=== PATIENT | female | born 1975 | race African-American/Black ===

== ENCOUNTER 2022-01-27 08:08 | Inpatient (IN) | payer MEDICARE, MEDICAID ==
[2022-01-27] MEDS ORDERED: Ketorolac Tromethamine 30 MG/ML VIAL ONE ×2 (08:54→16:31)
[2022-01-27] MEDS ORDERED: Morphine 4 MG/ML VIAL ONE (09:08)
[2022-01-27 09:29] LABS: #Monocytes 0.4 10x3/uL (0.0-1.1); #Neutrophils 9.3 10x3/uL (1.5-8.4); %Basophils 0.1 % (0.0-2.0); %Lymphocytes 3.4 % (18.0-47.0); %Monocytes 3.7 % (0.0-10.0); %Neutrophils 91.5 % (40.0-75.0); Hemoglobin 10.4 g/dL (12.0-15.5); Mean Corpuscular HGB CONC 33.5 g/dL (32.0-36.0); Mean Corpuscular Hemoglobin 25.9 pg (27.0-33.0); Mean Corpuscular Volume 77.1 fl (81.6-98.3); Mean Platelet Volume 9.6 fl (7.4-10.4); Platelet Count 202 10x3/uL (150-450); RBC Distribution Width 16.6 % (11.5-14.5); Red Blood Cell (RBC) Count 4.02 10x6/uL (3.90-5.03); White Blood Cell (WBC) Count 10.2 10x3/uL (3.5-10.5)
[2022-01-27 09:29] LABS: SARS-CoV-2 NAA Rapid Test Not Detected (NotDetected)
[2022-01-27 09:42] LABS: BHCG - Serum Negative (NEGATIVE); Pregs Control Background? CLEAR/WHITE (CLR/WHITE); Pregs Control Bar Appear? YES (CONTROL BAR)
[2022-01-27 09:51] LABS: ALT (SGPT) Less than 6 U/L (8-55); AST (SGOT) 20 U/L (5-34); Albumin 3.7 g/dL (3.5-5.0); Alkaline Phosphatase 61 U/L (40-110); Anion Gap 13 mmol/L (10-20); BUN (Urea Nitrogen) 5 mg/dL (7.0-18.7); Bilirubin, Total 0.4 mg/dL (0.2-1.2); Calc. Creatinine Clearance 0 mL/min (70-130); Carbon Dioxide 23 mmol/L (22-29); Chloride 102 mmol/L (98-107); Estimated GFR 103; Globulin 3.9 g/dL (2.4-3.5); Glucose 132 mg/dL (70-105); Protein, Total 7.6 g/dL (6.0-8.3); Sodium 135 mmol/L (136-145)
[2022-01-27 09:56] LABS: Potassium 2.6 mmol/L (3.5-5.1)
[2022-01-27] MEDS ORDERED: Fluconazole In NaCl,Iso-Osm 400 MG in Premix Bag 1 BAG IVPB SCH (10:00)
[2022-01-27] MEDS ORDERED: Magnesium 2 GM/50 ML BAG (IN WATER) ONE (10:15)
[2022-01-27] MEDS ORDERED: Potassium Chloride 20 MEQ TAB ONE (10:15)
[2022-01-27] MEDS ORDERED: Ondansetron ODT 4 MG TAB PO PRN (15:06)
[2022-01-27] MEDS ORDERED: Electrolyte Replacement Protocol 1 EACH FS SCH (15:15)
[2022-01-27] MEDS ORDERED: D5 1/2 NS w/20 mEq KCL 0 ML ONE (16:05)
[2022-01-27 18:13] VITALS: BMI 18.8
[2022-01-27] MEDS: 1/2 NS w/KCL 20 mEq 1,000 ML IV SCH (18:35)
[2022-01-27 20:43] LABS: Anion Gap 10 mmol/L (10-20); BUN (Urea Nitrogen) 8 mg/dL (7.0-18.7); Calc. Creatinine Clearance 72 mL/min (70-130); Calcium 8.4 mg/dL (7.8-10.44); Carbon Dioxide 25 mmol/L (22-29); Chloride 106 mmol/L (98-107); Estimated GFR 107; Glucose 123 mg/dL (70-105); Potassium 2.7 mmol/L (3.5-5.1); Sodium 138 mmol/L (136-145)
[2022-01-27] MEDS: Ketorolac Tromethamine 30 MG/ML VIAL IVP PRN (22:45)
[2022-01-27] MEDS ORDERED: Potassium Chloride 20 MEQ TAB PO SCH (23:00)
[2022-01-28] MEDS: Potassium Chloride 20 MEQ in Premix Bag 1 BAG IVPB SCH ×2 (00:07→03:05)
[2022-01-28] MEDS: 1/2 NS w/KCL 20 mEq 1,000 ML IV SCH ×3 (03:05→20:50)
[2022-01-28] MEDS: Ketorolac Tromethamine 30 MG/ML VIAL IVP PRN ×2 (04:16→09:28)
[2022-01-28] MEDS: Fluconazole In NaCl,Iso-Osm 400 MG in Premix Bag 1 BAG IVPB SCH (09:26)
[2022-01-28] MEDS: Magnesium Oxide 400 MG TAB PO SCH (09:29)
[2022-01-28] MEDS ORDERED: HYDROcodone/Acetaminophen 5/325 mg Tablet PO PRN (09:35)
[2022-01-28 10:31] LABS: Anion Gap 11 mmol/L (10-20); BUN (Urea Nitrogen) 10 mg/dL (7.0-18.7); Calc. Creatinine Clearance 75 mL/min (70-130); Calcium 8.3 mg/dL (7.8-10.44); Carbon Dioxide 20 mmol/L (22-29); Chloride 112 mmol/L (98-107); Estimated GFR 108; Glucose 92 mg/dL (70-105); Potassium 3.8 mmol/L (3.5-5.1); Sodium 139 mmol/L (136-145)
[2022-01-28] MEDS ORDERED: Magnesium 2 GM/50 ML(in water) 2 GM in Premix Bag 1 BAG IVPB SCH (11:00)
[2022-01-28 11:17] LABS: #Monocytes 0.2 10x3/uL (0.0-1.1); #Neutrophils 2.7 10x3/uL (1.5-8.4); %Basophils 0.3 % (0.0-2.0); %Eosinophils 0.6 % (0.0-6.0); %Monocytes 4.6 % (0.0-10.0); %Neutrophils 84.3 % (40.0-75.0); Hemoglobin 9.7 g/dL (12.0-15.5); Mean Corpuscular HGB CONC 32.9 g/dL (32.0-36.0); Mean Corpuscular Hemoglobin 25.7 pg (27.0-33.0); Mean Corpuscular Volume 78.2 fl (81.6-98.3); Platelet Count 136 10x3/uL (150-450); RBC Distribution Width 17.2 % (11.5-14.5); Red Blood Cell (RBC) Count 3.77 10x6/uL (3.90-5.03); White Blood Cell (WBC) Count 3.2 10x3/uL (3.5-10.5)
[2022-01-28 11:36] LABS: Microcytosis SLIGHT = 6-15 cells (100X) (0-5/hpf); Ovalocytes SLIGHT = 2-5 cells (100X) (0-1/hpf); Platelet Morphology Comment Appears Decreased
[2022-01-28] MEDS: Morphine 4 MG/ML VIAL SLOW IVP PRN ×3 (12:03→20:41)
[2022-01-28] MEDS: Nystatin 500,000 UNITS/5 ML UDCUP SSW SCH ×3 (12:05→20:43)
[2022-01-28 13:28] LABS: Anion Gap 10 mmol/L (10-20); BUN (Urea Nitrogen) 11 mg/dL (7.0-18.7); Calc. Creatinine Clearance 72 mL/min (70-130); Calcium 8.2 mg/dL (7.8-10.44); Carbon Dioxide 23 mmol/L (22-29); Chloride 112 mmol/L (98-107); Estimated GFR 107; Glucose 99 mg/dL (70-105); Potassium 3.8 mmol/L (3.5-5.1); Sodium 141 mmol/L (136-145)
[2022-01-28] MEDS: Gabapentin 300 MG CAP PO SCH ×2 (15:14→20:42)
[2022-01-28] MEDS: Ondansetron PF 4 MG/2 ML Vial IVP PRN (23:00)
[2022-01-29] MEDS: Morphine 4 MG/ML VIAL SLOW IVP PRN ×4 (04:08→17:26)
[2022-01-29] MEDS: Acetaminophen 325 MG TAB PO PRN ×3 (04:19→23:29)
[2022-01-29] MEDS: 1/2 NS w/KCL 20 mEq 1,000 ML IV SCH ×3 (08:31→23:30)
[2022-01-29] MEDS: Gabapentin 300 MG CAP PO SCH ×4 (08:31→20:33)
[2022-01-29] MEDS: Magnesium Oxide 400 MG TAB PO SCH (08:32)
[2022-01-29] MEDS: Nystatin 500,000 UNITS/5 ML UDCUP SSW SCH (08:32)
[2022-01-29] MEDS ORDERED: Fluconazole In NaCl,Iso-Osm 400 MG in Premix Bag 1 BAG IVPB SCH (09:00)
[2022-01-29] MEDS: Sulfameth/Trimethoprim DS 800-160mg TAB PO SCH (11:56)
[2022-01-29] MEDS: Fluconazole In NaCl,Iso-Osm 400 MG in Premix Bag 1 BAG IVPB SCH (11:57)
[2022-01-29] MEDS: Aluminum & Magnesium Hydroxide 60 ML, diphenhydrAMINE 150 MG, Lidocaine 2% Viscous Solu... SSW SCH ×3 (11:57→20:43)
[2022-01-29] MEDS ORDERED: Azithromycin 250 MG TAB PO SCH (13:00)
[2022-01-29] MEDS ORDERED: Azithromycin 200 MG/5 ML Oral Suspension PO SCH (13:00)
[2022-01-29] MEDS ORDERED: Lorazepam 2 MG/ML VIAL SLOW IVP PRN (17:34)
[2022-01-29] MEDS ORDERED: Morphine 4 MG/ML VIAL SLOW IVP SCH (18:00)
[2022-01-29] MEDS ORDERED: Lidocaine 2% Viscous Solution 10 ML, Aluminum & Magnesium Hydroxide 30 ML SSW SCH (18:00)
[2022-01-29] MEDS: Pantoprazole 40 MG VIAL IVP SCH (20:33)
[2022-01-29 21:49] LABS: Bilirubin Neg (Negative); Blood, Urine 50 (Negative); CAUTI Indications for Culture Fever or rigors; Clarity Clear (Clear); Glucose, Urine (Dipstick) Normal (Negative); Ketone, Urine Negative (Negative); Leukocyte Negative (Negative); Nitrite Negative (Negative); Protein, Urine (Dipstick) Negative (Neg-Trace); Specific Gravity, Urine 1.005 (1.005-1.030); Urobilinogen Normal mg/dL (Less than 2)
[2022-01-29 21:51] LABS: Urine Culture Reflex No No
[2022-01-29 21:54] LABS: Bacteria/HPF Rare-Few HPF (None Seen); Squamous Epithelial 0-3 HPF (0-3); Trichomonas/HPF Rare HPF (None Seen)
[2022-01-30] MEDS: Morphine 4 MG/ML VIAL SLOW IVP PRN ×5 (06:33→23:48)
[2022-01-30] MEDS: Aluminum & Magnesium Hydroxide 60 ML, diphenhydrAMINE 150 MG, Lidocaine 2% Viscous Solu... SSW SCH ×4 (09:28→20:25)
[2022-01-30] MEDS: Gabapentin 300 MG CAP PO SCH ×3 (09:29→20:09)
[2022-01-30] MEDS: Magnesium Oxide 400 MG TAB PO SCH (09:29)
[2022-01-30] MEDS: Pantoprazole 40 MG VIAL IVP SCH ×2 (09:29→20:09)
[2022-01-30] MEDS: Fluconazole In NaCl,Iso-Osm 400 MG in Premix Bag 1 BAG IVPB SCH (09:29)
[2022-01-30] MEDS: 1/2 NS w/KCL 20 mEq 1,000 ML IV SCH (12:16)
[2022-01-30] MEDS: Sulfameth/Trimethoprim DS 800-160mg TAB PO SCH (13:13)
[2022-01-30] MEDS: Acetaminophen 325 MG TAB PO PRN (20:10)
[2022-01-31] MEDS: Morphine 4 MG/ML VIAL SLOW IVP PRN ×5 (05:33→21:16)
[2022-01-31] MEDS: Acetaminophen 325 MG TAB PO PRN ×2 (05:33→21:04)
[2022-01-31] MEDS: Gabapentin 300 MG CAP PO SCH ×3 (09:16→21:03)
[2022-01-31] MEDS: Pantoprazole 40 MG VIAL IVP SCH ×2 (09:16→21:04)
[2022-01-31] MEDS: Fluconazole In NaCl,Iso-Osm 400 MG in Premix Bag 1 BAG IVPB SCH (09:17)
[2022-01-31] MEDS: Aluminum & Magnesium Hydroxide 60 ML, diphenhydrAMINE 150 MG, Lidocaine 2% Viscous Solu... SSW SCH ×4 (09:17→21:05)
[2022-01-31] MEDS: Magnesium Oxide 400 MG TAB PO SCH (09:17)
[2022-01-31] MEDS: Sulfameth/Trimethoprim DS 800-160mg TAB PO SCH (13:00)
[2022-01-31] MEDS: SMX/TMP 800-160mg/20 ML UDCUP PO SCH (15:25)
[2022-02-01] MEDS: Morphine 4 MG/ML VIAL SLOW IVP PRN ×4 (02:17→16:24)
[2022-02-01] MEDS: Ondansetron PF 4 MG/2 ML Vial IVP PRN (02:26)
[2022-02-01] MEDS: Acetaminophen 325 MG TAB PO PRN ×4 (02:43→22:20)
[2022-02-01] MEDS ORDERED: Ibuprofen 800 MG TAB PO PRN (07:17)
[2022-02-01] MEDS: Aluminum & Magnesium Hydroxide 60 ML, diphenhydrAMINE 150 MG, Lidocaine 2% Viscous Solu... SSW SCH ×2 (08:08→11:46)
[2022-02-01] MEDS: Magnesium Oxide 400 MG TAB PO SCH (08:09)
[2022-02-01] MEDS ORDERED: Morphine 4 MG/ML VIAL ONE (08:17)
[2022-02-01] MEDS: Pantoprazole 40 MG VIAL IVP SCH ×2 (08:40→22:16)
[2022-02-01] MEDS: Fluconazole In NaCl,Iso-Osm 400 MG in Premix Bag 1 BAG IVPB SCH (08:40)
[2022-02-01] MEDS: Gabapentin 300 MG CAP PO SCH ×3 (08:40→22:14)
[2022-02-01] MEDS: Nystatin 500,000 UNITS/5 ML UDCUP SSW SCH ×3 (13:11→22:16)
[2022-02-01] MEDS: SMX/TMP 800-160mg/20 ML UDCUP PO SCH (16:24)
[2022-02-01] MEDS: OLANZapine 5 MG TAB PO SCH (22:15)
[2022-02-02] MEDS: Magnesium Oxide 400 MG TAB PO SCH (09:08)
[2022-02-02] MEDS: Pantoprazole 40 MG VIAL IVP SCH ×2 (11:44→19:44)
[2022-02-02] MEDS: Nystatin 500,000 UNITS/5 ML UDCUP SSW SCH ×4 (11:44→19:44)
[2022-02-02] MEDS: Gabapentin 300 MG CAP PO SCH ×3 (11:45→23:24)
[2022-02-02] MEDS: Morphine 4 MG/ML VIAL SLOW IVP PRN ×4 (12:43→23:18)
[2022-02-02] MEDS: Fluconazole In NaCl,Iso-Osm 400 MG in Premix Bag 1 BAG IVPB SCH (12:44)
[2022-02-02] MEDS: Acetaminophen 325 MG TAB PO PRN ×3 (12:44→19:49)
[2022-02-02] MEDS: SMX/TMP 800-160mg/20 ML UDCUP PO SCH (16:21)
[2022-02-02] MEDS: OLANZapine 5 MG TAB PO SCH (19:44)
[2022-02-03] MEDS: Morphine 4 MG/ML VIAL SLOW IVP PRN ×5 (03:24→23:16)
[2022-02-03] MEDS: Magnesium Oxide 400 MG TAB PO SCH (08:54)
[2022-02-03] MEDS: Nystatin 500,000 UNITS/5 ML UDCUP SSW SCH ×4 (08:55→21:24)
[2022-02-03] MEDS: Gabapentin 300 MG CAP PO SCH ×3 (08:55→23:18)
[2022-02-03] MEDS: Pantoprazole 40 MG VIAL IVP SCH ×2 (09:08→21:24)
[2022-02-03] MEDS: Fluconazole In NaCl,Iso-Osm 400 MG in Premix Bag 1 BAG IVPB SCH (09:12)
[2022-02-03] MEDS: SMX/TMP 800-160mg/20 ML UDCUP PO SCH (15:10)
[2022-02-03] MEDS: Acetaminophen 325 MG TAB PO PRN (21:33)
[2022-02-03] MEDS: OLANZapine 5 MG TAB PO SCH (21:34)
[2022-02-04] MEDS: Morphine 4 MG/ML VIAL SLOW IVP PRN ×3 (03:51→14:12)
[2022-02-04] MEDS: Pantoprazole 40 MG VIAL IVP SCH (09:06)
[2022-02-04] MEDS: Fluconazole In NaCl,Iso-Osm 400 MG in Premix Bag 1 BAG IVPB SCH (09:06)
[2022-02-04] MEDS: Nystatin 500,000 UNITS/5 ML UDCUP SSW SCH ×2 (09:19→14:11)
[2022-02-04] MEDS: Gabapentin 300 MG CAP PO SCH ×2 (09:19→14:11)
[2022-02-04] MEDS: Magnesium Oxide 400 MG TAB PO SCH (09:19)
[2022-02-04 12:52] VITALS: BP 113/70; TEMP 99.6
[2022-02-04] MEDS: SMX/TMP 800-160mg/20 ML UDCUP PO SCH (14:11)
== END 2022-02-04 17:15 | disposition hospice, inpatient (51) | DRG 974 ==
LOC: CSHERS 08:08 → CSHTELE 17:25
PROVIDERS: ADMIT Family Medicine; ATTEND Family Medicine
DX: B37.81 Candidal esophagitis (principal); E43 Unspecified severe protein-calorie malnutrition; B20 Human immunodeficiency virus [HIV] disease; Z68.1 Body mass index [BMI] 19.9 or less, adult; Z66 Do not resuscitate; Z51.5 Encounter for palliative care; D50.9 Iron deficiency anemia, unspecified; R13.10 Dysphagia, unspecified; F41.9 Anxiety disorder, unspecified; F17.210 Nicotine dependence, cigarettes, uncomplicated; E87.6 Hypokalemia; Z20.822 Contact with and (suspected) exposure to COVID-19; F31.9 Bipolar disorder, unspecified; Z91.14 Patient's other noncompliance with medication regimen; Z88.8 Allergy status to other drugs, medicaments and biological substances; Z79.899 Other long term (current) drug therapy; Z98.890 Other specified postprocedural states; Z98.51 Tubal ligation status; Z80.8 Family history of malignant neoplasm of other organs or systems
CPT/HCPCS: 36415; 70450; 71046; 80048; 80053; 81001; 83605; 83735; 84703; 85025; 86361; 87040; 87633; 93005; 93010; 94760; 96361; 96365; 96366; 96368; 96375; C9113; J1450; J1885; J2270; J2405; J3475; J3480; Q0163; U0003; U0005

== ENCOUNTER 2022-03-05 17:50 | Inpatient (IN) | payer MEDICARE, MEDICAID ==
[2022-03-05] MEDS ORDERED: Ondansetron PF 4 MG/2 ML Vial ONE (20:04)
[2022-03-05] MEDS ORDERED: HYDROcodone/Acetaminophen 5/325 mg Tablet ONE ×2 (20:04→21:54)
[2022-03-05 20:27] LABS: ALT (SGPT) 6 U/L (8-55); AST (SGOT) 17 U/L (5-34); Alkaline Phosphatase 66 U/L (40-110); Anion Gap 14 mmol/L (10-20); BUN (Urea Nitrogen) 9 mg/dL (7.0-18.7); Bilirubin, Total 0.2 mg/dL (0.2-1.2); Calc. Creatinine Clearance 0 mL/min (70-130); Calcium 9.6 mg/dL (7.8-10.44); Carbon Dioxide 26 mmol/L (22-29); Chloride 104 mmol/L (98-107); Estimated GFR 98; Globulin 4.2 g/dL (2.4-3.5); Glucose 113 mg/dL (70-105); Magnesium 1.6 mg/dL (1.6-2.6); Potassium 3.8 mmol/L (3.5-5.1); Protein, Total 8.2 g/dL (6.0-8.3); Sodium 140 mmol/L (136-145)
[2022-03-05 20:29] LABS: #Monocytes 0.4 10x3/uL (0.0-1.1); #Neutrophils 3.6 10x3/uL (1.5-8.4); %Basophils 0.2 % (0.0-2.0); %Monocytes 8.1 % (0.0-10.0); %Neutrophils 78.3 % (40.0-75.0); Hemoglobin 10.2 g/dL (12.0-15.5); Mean Corpuscular HGB CONC 32.9 g/dL (32.0-36.0); Mean Corpuscular Hemoglobin 26.6 pg (27.0-33.0); Mean Corpuscular Volume 80.7 fl (81.6-98.3); Mean Platelet Volume 9.9 fl (7.4-10.4); Platelet Count 244 10x3/uL (150-450); RBC Distribution Width 17.7 % (11.5-14.5); Red Blood Cell (RBC) Count 3.84 10x6/uL (3.90-5.03); White Blood Cell (WBC) Count 4.6 10x3/uL (3.5-10.5)
[2022-03-06 00:04] VITALS: BMI 16.2
[2022-03-06] MEDS ORDERED: Morphine 2 MG/ML VIAL SLOW IVP SCH (02:15)
[2022-03-06] MEDS ORDERED: Senokot S 8.6-50 MG TAB PO PRN (03:03)
[2022-03-06] MEDS ORDERED: Calcium Carbonate 500 MG ChewTAB PO PRN (03:03)
[2022-03-06] MEDS ORDERED: Acetaminophen 325 MG TAB PO PRN (03:03)
[2022-03-06] MEDS ORDERED: Zolpidem Tartrate 5 MG TAB PO PRN (03:03)
[2022-03-06] MEDS ORDERED: Ondansetron PF 4 MG/2 ML Vial IVP PRN (03:03)
[2022-03-06] MEDS ORDERED: HYDROcodone/Acetaminophen 7.5/325 mg Tablet PO PRN (03:03)
[2022-03-06] MEDS ORDERED: Ondansetron ODT 4 MG TAB PO PRN (03:03)
[2022-03-06 03:37] LABS: SARS-CoV-2 NAA Rapid Test Not Detected (NotDetected)
[2022-03-06] MEDS ORDERED: Potassium Chloride 20 MEQ in Lactated Ringer's 1,000 ML IV SCH (04:30)
[2022-03-06] MEDS: HYDROcodone/Acetaminophen 10/325 mg Tablet PO PRN ×2 (09:08→18:13)
[2022-03-06] MEDS ORDERED: Morphine IR Tab 15 MG TAB PO SCH (12:00)
[2022-03-06] MEDS: Gabapentin 300 MG CAP PO SCH ×2 (16:08→20:49)
[2022-03-06] MEDS: OLANZapine 5 MG TAB PO SCH (20:46)
[2022-03-06] MEDS: Morphine IR Tab 15 MG TAB PO SCH (20:46)
[2022-03-07] MEDS: Morphine IR Tab 15 MG TAB PO SCH ×3 (08:55→20:56)
[2022-03-07] MEDS: Gabapentin 300 MG CAP PO SCH ×4 (14:12→21:35)
[2022-03-07] MEDS: OLANZapine 5 MG TAB PO SCH (20:58)
[2022-03-08 05:08] LABS: Acetaminophen Less than 10.0 mcg/mL (10.0-30.0); Alcohol Less than 10 mg/dL (Less than 10); Salicylate Less than 8.0 mg/dL (15.0-30.0)
[2022-03-08] MEDS: Morphine IR Tab 15 MG TAB PO SCH ×3 (12:31→21:23)
[2022-03-08] MEDS: Gabapentin 300 MG CAP PO SCH ×4 (12:32→21:35)
[2022-03-08] MEDS: OLANZapine 5 MG TAB PO SCH (21:24)
[2022-03-09] MEDS: Morphine IR Tab 15 MG TAB PO SCH ×3 (08:38→21:30)
[2022-03-09] MEDS: Gabapentin 300 MG CAP PO SCH ×3 (08:40→21:32)
[2022-03-09] MEDS: Diclofenac 1% 100 GM GEL TP SCH ×3 (15:23→21:31)
[2022-03-09] MEDS: OLANZapine 5 MG TAB PO SCH (21:32)
[2022-03-10] MEDS: Diclofenac 1% 100 GM GEL TP SCH ×5 (08:49→20:47)
[2022-03-10] MEDS: Gabapentin 300 MG CAP PO SCH ×3 (10:48→20:44)
[2022-03-10] MEDS: Morphine IR Tab 15 MG TAB PO SCH ×3 (11:49→20:43)
[2022-03-11] MEDS: OLANZapine 5 MG TAB PO SCH
[2022-03-11 06:45] VITALS: TEMP 98.7
[2022-03-11] MEDS: Morphine IR Tab 15 MG TAB PO SCH (08:59)
[2022-03-11] MEDS: Gabapentin 300 MG CAP PO SCH (09:00)
[2022-03-11] MEDS: Diclofenac 1% 100 GM GEL TP SCH (09:01)
[2022-03-11 09:11] VITALS: BP 125/79
== END 2022-03-11 12:30 | disposition home or self-care (01) | DRG 977 ==
LOC: CSHERS 17:50 → CSHIMCU 23:55 → UNDOADMIN 23:55 → EEVIPCON 03-06 03:03 → CSHIMCU 03-06 03:03 → CSHTELE 03-06 17:08
PROVIDERS: ADMIT Family Medicine; ATTEND Family Medicine
DX: B20 Human immunodeficiency virus [HIV] disease (principal); E43 Unspecified severe protein-calorie malnutrition; Z68.1 Body mass index [BMI] 19.9 or less, adult; R64 Cachexia; Z20.822 Contact with and (suspected) exposure to COVID-19; F31.9 Bipolar disorder, unspecified; F17.210 Nicotine dependence, cigarettes, uncomplicated; R62.7 Adult failure to thrive; F14.10 Cocaine abuse, uncomplicated; Z66 Do not resuscitate; Z88.8 Allergy status to other drugs, medicaments and biological substances; Z79.899 Other long term (current) drug therapy; Z98.51 Tubal ligation status
CPT/HCPCS: 71045; 80053; 80307; 83605; 83735; 84484; 85025; 93005; 96360; 96361; J2272; J2405; J3475; J3480; J7120; U0002